=== PATIENT | female | born 1995 | race Caucasian/White ===

== ENCOUNTER 2020-07-15 12:24 | Emergency (ER) | payer MEDICAID ==
[~2020-07-15] VITALS: Ht 157.5 cm; Wt 63.5 kg
--- NOTE | 2020-07-15 12:46 | NUR ---
PT HERE FOR C/O LLQ ABD PAIN, STATES [facility] AND TOLD SHE HAS ECTOPIC . +BLEEDING WITH CLOTS THAT HAS NOW RESOLVED. PLACED ON VITALS MONITORS, CALL LIGTH PLACED WITHIN REACH. PROVIDER AT BEDSIDE FOR EVAL.
--- NOTE | 2020-07-15 13:15 | NUR ---
assumed care of pt. report from [facility] in progress
[2020-07-15 13:47] LABS: BASOPHILS % (AUTO) 0 % (0-1); EOSINOPHILS % (AUTO) 0 % (1-7); LYMPHOCYTES % (AUTO) 27 % (22-44); MEAN CORPUSCULAR HEMOGLOBIN 29.9 pg (27.0-34.8); MEAN CORPUSCULAR HGB CONC 34.5 g/dL (32.4-35.8); MEAN PLATELET VOLUME 7.7 fL (7.4-10.4); MONOCYTES % (AUTO) 4 % (2-9); NEUTROPHILS % (AUTO) 68 % (42-75); PLATELET COUNT 296 x10^3/uL (130-400); RED BLOOD COUNT 4.65 x10^6/uL (3.82-5.3); RED CELL DISTRIBUTION WIDTH 12.9 % (9.6-15.2)
[2020-07-15 13:52] LABS: MD NO
[2020-07-15 13:56] LABS: ALANINE AMINOTRANSFERASE 39 U/L (12-78); ALBUMIN 4.1 g/dL (3.4-5.0); ANION GAP 7 mmol/L (5-15); CALCIUM 9.1 mg/dL (8.5-10.1); CHLORIDE 108 mmol/L (98-107)
[2020-07-15 13:57] LABS: INTERNATIONAL NORMALIZED RATIO 1.02 (0.93-1.1); PROTHROMBIN TIME 10.8 Seconds (9.6-11.5)
--- NOTE | 2020-07-15 14:05 | NUR ---
pt here for evaluation of RLQ pain and potential ectopic . pt reports thta her LMP was the first week of June and that she has had a positive test at home. pt had a termination scheduled for today but was told by staff that she potentially has ectopic and was sent here. pt reports that she is having some intermittent crampin and vaginal spotting. no urinary sx. no other c/o pt reports that she had a cup of coffee this AM at about 0800 with a little bit of water. nothing to eat since last nocs resting in position of comfort. no family at bedside
[2020-07-15 14:14] LABS: ALKALINE PHOSPHATASE 45 U/L (45-117); BILIRUBIN,TOTAL 0.4 mg/dL (0.2-1.0); CREATININE 0.71 mg/dL (0.55-1.02); TOTAL PROTEIN 7.4 g/dL (6.4-8.2)
--- NOTE | 2020-07-15 15:02 | NUR ---
no changes. awaiting OB to bedside for eval
--- NOTE | 2020-07-15 15:43 | NUR ---
pt has been updated on POC. resting in position of cmfort. no new c/o. no apparent distress
--- NOTE | 2020-07-15 16:51 | NUR ---
OB MD has been to bedside for eval
--- NOTE | 2020-07-15 17:31 | NUR ---
awaiting methotrexate delivery from pharmacy
[2020-07-15] MEDS ORDERED: METHOTREXATE IM ONE (18:00)
--- NOTE | 2020-07-15 18:46 | NUR ---
pt to have methotrexate. awaiting chemo certified RN to bedside pt has been updated on POC
--- NOTE | 2020-07-15 18:48 | NUR ---
report to [facility]
--- NOTE | 2020-07-15 19:06 | NUR ---
bedside report received from kaela rn, pt care transferred at this time. pt resting on gurney, nad, appears comfortable, provided water for comfort, waiting for certified onc rn to admin med, wctm.
--- NOTE | 2020-07-15 19:37 | NUR ---
pt medicated per mar by chemo certified nurses. pt nad, resting on gurney, bed in lowest, rails engaged, call light on lap. continuing monitoring, denies additional needs at this time. wctm. family at bs. to be dc'd
--- NOTE | 2020-07-15 19:50 | NUR ---
pt provided crackers and snacks for comfort, nad, resting on gurney, no change in condition, wctm. to be dc'd.
[2020-07-15 20:06] VITALS: BP 93/59
--- NOTE | 2020-07-15 20:07 | NUR ---
Patientr given discharge instructions and they have confirmed that they understand the instructions. Patient ambulatory with steady gait. nad, denies additional needs at this time, all questions answered appropriately. no personal belongings left in room after dc
== END 2020-07-15 20:20 | disposition home or self-care (01) ==
LOC: ED 15:29
DX: O00.90 Unspecified ectopic pregnancy without intrauterine pregnancy (principal)
CPT/HCPCS: 36415; 76817; 80053; 84702; 85025; 85610; 85730; 86850; 86900; 96372; 99285; J9250

== ENCOUNTER 2020-07-22 15:54 | Outpatient (CLI) | payer MEDICAID | END 2020-07-22 23:59 | disposition home or self-care (01) | LOC: LAB 15:54 | PROVIDERS: ATTEND Obstetrics & Gynecology | DX: Z02.9 Encounter for administrative examinations, unspecified (principal) ==